=== PATIENT | female | born 1950 | race Caucasian/White ===

== ENCOUNTER → 2016-06-17 | Outpatient (CLI) | payer MEDICARE, BC ==
--- NOTE | 2016-06-18 14:19 | RADONC ---
RADIATION ONCOLOGY CONSULTATION NOTE DATE: 06/17/2016 CHART NUMBER: [id number]. DIAGNOSIS: Right breast cancer. STAGE: IA, [id number]. ECOG PERFORMANCE STATUS: 0 CONSULTATION NOTE: Ms. 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 HISTORY OF PRESENT ILLNESS The patient was in the usual state of health until routine mammogram was done on 02/13/2016 which revealed a small mass in the 11 o'clock position of the right breast. On 04/04/2016 the patient underwent needle biopsy and pathology revealed a well-differentiated infiltrating ductal carcinoma. On 05/06/2016 the patient underwent lumpectomy and sentinel lymph node biopsy. Pathology revealed a 1 cm x 1 cm x 0.9 cm well-differentiated invasive ductal carcinoma of the right breast. All margins of resection were negative. The tumor was estrogen receptor and progesterone receptor positive and HER2 negative. Two sentinel lymph nodes were sampled and were negative for malignancy. The patient underwent Oncotype testing, the results of which I do not have at this time, but it was determined that she would not benefit from systemic chemotherapy. She is now presenting for consideration of postoperative radiation therapy for conservative breast management. PAST MEDICAL HISTORY: The patient's past medical history is positive for hypertension and cataracts. She has had cataract surgery. ALLERGIES: The patient has no known drug allergies. SOCIAL HISTORY: The patient has smoked one pack of cigarettes per day for 50 years. She does not abuse alcohol. FAMILY HISTORY: The patient's family history is positive for a mother with some type of cancer. REVIEW OF SYSTEMS: The patient's review of systems is noncontributory. She denies nausea, vomiting, fevers, chills, night sweats, diplopia, headaches, anxiety or depression, anorexia, weight loss, visual disturbances, chest pain, urinary or bowel difficulties, bone pain, or neurological problems. PHYSICAL EXAMINATION: The patient is a well-developed, well-nourished white female in no acute distress. HEENT exam is normocephalic, atraumatic. Extraocular movements are intact. There is no palpable cervical, supraclavicular, infraclavicular, axillary, or inguinal lymphadenopathy present. Lungs are clear to auscultation and percussion. Heart has a regular rate and rhythm. Abdomen is benign with no hepatosplenomegaly, masses, or tenderness. Breast examination reveals no masses or discharge bilaterally. Skeletal examination reveals no tenderness to pressure or percussion of the bony skeleton. Extremities reveal no clubbing, cyanosis, or edema. Neurologic exam is grossly intact, as is the remainder of the physical examination. ASSESSMENT: Clearly the patient is a candidate for external beam radiation therapy and I have so informed her. I have discussed with the patient in detail the potential benefits as well as possible acute and chronic sequelae of external beam radiation therapy. We have discussed logistics of treatment planning, simulation and subsequent fractionated daily radiation treatments. I have scheduled the patient for the next available simulation slot and radiation treatments will begin subsequently. Thank you for allowing us to participate in the care of this very pleasant woman. If I could be of any further assistance or provide you with any information, please feel free to contact me at any time. cc: *Ezequiel Joe MD *Zen Pinto MD *Eleonora Nur MD
== END ==
LOC: M ONCR 13:09
PROVIDERS: ATTEND Radiology Radiation Oncology
DX: C50.119 Malignant neoplasm of central portion of unspecified female breast (principal)

== ENCOUNTER 2016-06-24 09:44 | Outpatient (RCR) | payer MEDICARE, BC | END 2016-07-11 | LOC: M ONCR 09:44 | PROVIDERS: ATTEND Radiology Radiation Oncology | DX: C50.411 Malignant neoplasm of upper-outer quadrant of right female breast (principal) ==

== ENCOUNTER → 2016-06-24 | Outpatient (CLI) | payer MEDICARE, BC ==
[2016-06-24 09:55] LABS: MEAN CORPUSCULAR HEMOGLOBIN 33.3 pg (27.0-33.0); MEAN CORPUSCULAR HGB CONC 35.1 g/dl (32.0-36.5); MEAN CORPUSCULAR VOLUME 94.8 fl (80.0-96.0); RED CELL DISTRIBUTION WIDTH 11.5 % (11.5-14.5); WHITE BLOOD COUNT 5.7 K/mm3 (4.0-10.0)
== END ==
LOC: M RAD 08:36
PROVIDERS: ATTEND Radiology Radiation Oncology
DX: C50.919 Malignant neoplasm of unspecified site of unspecified female breast (principal)

== ENCOUNTER 2016-07-14 08:01 | Outpatient (RCR) | payer MEDICARE, BC ==
--- NOTE | 2016-07-15 07:26 | RADONC ---
RADIATION ONCOLOGY PROGRESS NOTE: DATE OF SERVICE: 07/14/2016 CHART NO: [id number] Ms. Young is presently at a dose of 1064 cGy to her right breast and is tolerating treatments quite well at this point with no complaints related to her radiation therapy. She has no breast or bone pain. REVIEW OF SYSTEMS: The patient's review of systems is noncontributory. Denies nausea, vomiting, fevers, chills, night sweats, diplopia, headaches, anxiety or depression, anorexia, weight loss, visual disturbances, chest pain, urinary or bowel difficulties, bone pain, or neurological problems. PHYSICAL EXAMINATION: The patient's skin is in good condition with no evidence of radiation change present. There is no moist or dry desquamation. The remainder of her physical exam remains unchanged. Ms. Young is tolerating treatments quite well and radiation will continue as scheduled.
--- NOTE | 2016-07-22 06:48 | RADONC ---
RADIATION ONCOLOGY PROGRESS NOTE DATE: 07/21/2016 CHART NUMBER: [id number]. Ms. Young is presently at a dose of 2394 cGy to her right breast and is tolerating treatments quite well with no complaints related to her radiation therapy. She is having no breast or bone pain. REVIEW OF SYSTEMS: The patient's review of systems is noncontributory. She denies nausea, vomiting, fevers, chills, night sweats, diplopia, headaches, anxiety or depression, anorexia, weight loss, visual disturbances, chest pain, urinary or bowel difficulties, bone pain, or neurological problems. PHYSICAL EXAMINATION: The patient's skin is in good condition with no evidence of moist or dry desquamation. The remainder of her physical exam remains unchanged. Ms. Young is tolerating treatments quite well and radiation will continue as scheduled.
--- NOTE | 2016-07-28 11:13 | RADONC ---
RADIATION ONCOLOGY PROGRESS NOTE DATE: 07/28/2016 CHART NUMBER: [id number] Ms. Young is presently at a dose of 3638 cGy to her right breast and is tolerating treatments quite well at this point with no complaints related to her radiation therapy. She has no breast or bone pain. The patient's review of systems is noncontributory. She denies nausea, vomiting, fevers, chills, night sweats, diplopia, headaches, anxiety or depression, anorexia, weight loss, visual disturbances, chest pain, urinary or bowel difficulties, bone pain, or neurological problems. PHYSICAL EXAMINATION: The patient's skin is in good condition with no evidence of moist or dry desquamation. There is just some erythema present. The remainder of her physical exam remains unchanged. Ms. Young is tolerating treatments quite well and radiation will continue as scheduled.
--- NOTE | 2016-07-31 08:54 | RADONC ---
RADIATION ONCOLOGY TREATMENT SUMMARY DATE: 07/30/2016 CHART NUMBER: [id number]. DIAGNOSIS: Right breast cancer. STAGE: IA, [id number]. ECOG PERFORMANCE STATUS: Zero TREATMENT SUMMARY: Ms. Young is a very pleasant, 65-year-old white female with the diagnosis of a stage IA, [id number] well-differentiated invasive ductal carcinoma of the right breast who presented to us status post lumpectomy and sentinel lymph node biopsy for consideration of postoperative radiation therapy for conservative breast management. We treated the patient to the right breast for a total dose of 4250 cGy delivered in 16 fractions of 265.6 cGy over 21 elapsed days from 07/09/2016 through 07/30/2016. The patient's right breast was treated on a linear accelerator utilizing 3-D conformal therapy via medial and lateral tangential friedman and a combination of 18X and 6X photons. Ms. Young tolerated her treatments quite well and was able complete therapy as prescribed without interruption. I have scheduled the patient to see me again in 1 month for further followup. She will also continue to be followed by her other physicians as well. cc: *Ezequiel Joe MD *Zen Pinto MD *Eleonora Nur MD
== END 2016-08-10 ==
LOC: M ONCR 08:01
PROVIDERS: ATTEND Radiology Radiation Oncology
DX: C50.411 Malignant neoplasm of upper-outer quadrant of right female breast (principal)

== ENCOUNTER → 2016-08-27 | Outpatient (CLI) | payer MEDICARE, BC ==
--- NOTE | 2016-08-27 10:16 | RADONC ---
RADIATION ONCOLOGY FOLLOWUP NOTE DATE: 08/27/2016 CHART NUMBER: [id number] DIAGNOSIS: Right breast cancer. STAGE: IA, [id number]. ECOG PERFORMANCE STATUS: 0. FOLLOWUP NOTE: Ms. Young is a very pleasant 65-year-old white female with the diagnosis of a stage IA, [id number], well-differentiated invasive ductal carcinoma of the right breast who is presenting to us today for routine followup visit 1 month post completion of external beam radiation therapy. The patient presents today reporting that she is doing quite well with no complaints at this time related to her radiation therapy or disease. She had no breast or bone pain. The patient's review of systems noncontributory. She denies nausea, vomiting, fevers, chills, night sweats, diplopia, headaches, anxiety or depression, anorexia, weight loss, visual disturbances, chest pain, urinary or bowel difficulties, bone pain, or neurological problems. PHYSICAL EXAMINATION: The patient is a well-developed, well-nourished, female in no acute distress. HEENT exam is normocephalic, atraumatic. Extraocular movements are intact. There is no palpable cervical, supraclavicular, infraclavicular, axillary, or inguinal lymphadenopathy present. Lungs are clear to auscultation and percussion. Heart has a regular rate and rhythm. Abdomen is benign with no hepatosplenomegaly, masses, or tenderness. Breast examination reveals no masses or discharge bilaterally. Skeletal examination reveals no tenderness to pressure or percussion of the bony skeleton. Extremities reveal no clubbing, cyanosis, or edema. Neurologic exam is grossly intact, as is the remainder of the physical examination. ASSESSMENT: The patient is clinically doing quite well at this point and will be seen by us again in 6 months for further followup. She will also continue to be followed by her other physicians as well. cc: *Ezequiel Joe MD *Zen Pinto MD *Eleonora Nur MD *Azar Negron MD
== END ==
LOC: M ONCR 09:34
PROVIDERS: ATTEND Radiology Radiation Oncology
DX: C50.411 Malignant neoplasm of upper-outer quadrant of right female breast (principal)

== ENCOUNTER → 2017-02-25 | Outpatient (CLI) | payer MEDICARE, BC ==
--- NOTE | 2017-02-25 11:06 | RADONC ---
RADIATION ONCOLOGY FOLLOWUP NOTE DATE: 02/25/2017 CHART NUMBER: [id number]. DIAGNOSIS: Right breast cancer. STAGE: IA, [id number]. ECOG PERFORMANCE STATUS: Zero. FOLLOWUP NOTE: Ms. Young is a very pleasant, 66-year-old white female with the diagnosis of a stage IA, [id number], well-differentiated invasive ductal carcinoma of the right breast who is presenting to us today for routine followup visit 7 months post completion of external beam radiation therapy. The patient presents today reporting that she is doing quite well with no complaints at this time related to her radiation therapy or disease other than some right breast tenderness. REVIEW OF SYSTEMS: The patient's review of systems is positive for right breast tenderness, but is otherwise noncontributory. Denies nausea, vomiting, fevers, chills, night sweats, diplopia, headaches, anxiety or depression, anorexia, weight loss, visual disturbances, chest pain, urinary or bowel difficulties, bone pain, or neurological problems. PHYSICAL EXAMINATION: The patient is a well-developed, well-nourished, 66-year-old white female in no acute distress. HEENT exam is normocephalic, atraumatic. Extraocular movements are intact. There is no palpable cervical, supraclavicular, infraclavicular, axillary, or inguinal lymphadenopathy present. Lungs are clear to auscultation and percussion. Heart has a regular rate and rhythm. Abdomen is benign with no hepatosplenomegaly, masses, or tenderness. Breast examination reveals no masses or discharge bilaterally. Skeletal examination reveals no tenderness to pressure or percussion of the bony skeleton. Extremities reveal no clubbing, cyanosis, or edema. Neurologic exam is grossly intact, as is the remainder of the physical examination. ASSESSMENT: The patient is clinically KHANH at this time and will be seen by us again in 6 months for further followup. She will also continue to be followed by her other physicians as well. cc: Ezequiel Joe MD, FRCPC MD Eleonora Carrington MD Howard Meny, MD
== END ==
LOC: M ONCR 09:28
PROVIDERS: ATTEND Radiology Radiation Oncology
DX: Z08 Encounter for follow-up examination after completed treatment for malignant neoplasm (principal); Z85.3 Personal history of malignant neoplasm of breast; Z92.3 Personal history of irradiation

== ENCOUNTER → 2017-08-12 | Outpatient (CLI) | payer MEDICARE, BC | LOC: M ONCR 09:13 | DX: Z08 Encounter for follow-up examination after completed treatment for malignant neoplasm (principal); Z85.3 Personal history of malignant neoplasm of breast | CPT/HCPCS: G0463 ==

== ENCOUNTER → 2018-02-10 | Outpatient (CLI) | payer MEDICARE, BC | LOC: M ONCR 09:38 | DX: C50.919 Malignant neoplasm of unspecified site of unspecified female breast (principal) | CPT/HCPCS: G0463 ==

== ENCOUNTER → 2018-08-17 | Outpatient (CLI) | payer MEDICARE, BC ==
--- NOTE | 2018-08-20 09:48 | DEXA ---
AP SPINE L1 - L4 1.023 -1.4 0.2 LT FEMUR TOTAL 0.784 -1.8 -0.4 LT NECK 0.774 -1.9 -0.3 RT FEMUR TOTAL 0.811 -1.6 -0.2 RT NECK 0.794 -1.8 -0.2 TOTAL BODY TOTAL OTHER COMMENTS: There is low bone density of the spine and hips. The density of the spine has decreased 6.4% since 08/13/2016. The density neck of the left hip has decreased 3.0% since 08/13/2016. The density neck of the right hip has increased 1.5% since 08/13/2016. The decreased density of the spine does represent a significant change. The decreased density of the left hip does represent significant change. The increased density of the right hip does not represent significant change. FOLLOW-UP: Recommendation for the next bone density exam: 2 years. ELAINE
== END ==
LOC: M WHC 10:20
PROVIDERS: ATTEND Internal Medicine Medical Oncology
DX: Z17.0 Estrogen receptor positive status [ER+] (principal); M85.89 Other specified disorders of bone density and structure, multiple sites; C50.111 Malignant neoplasm of central portion of right female breast

== ENCOUNTER → 2019-02-16 | Outpatient (CLI) | payer MEDICARE, BC ==
--- NOTE | 2019-02-16 10:35 | RADONC ---
RADIATION ONCOLOGY FOLLOWUP NOTE DATE: 02/16/2019 CHART NUMBER: [id number] DIAGNOSIS: Right breast cancer. STAGE: I A, [id number]. ECOG PERFORMANCE STATUS: 0 FOLLOWUP NOTE: Mrs. Young is a very pleasant, 67-year-old female with a diagnosis of a stage I A, [id number], well differentiated invasive ductal carcinoma involving the right breast. She presents today for a followup visit after having completed a course of adjuvant radiotherapy on 07/30/2016. Since this time she has been doing relatively well, however an abnormality was noted on the left breast (contralateral breast). This area of question was biopsied and shown to represent only fibrocystic changes with adenosis and intraductal papilloma. She is continuing to be followed up very carefully by her referring physicians including Dr. Ezequiel Joe, Dr. Azar Negron, Dr. Eleonora Nur, and Dr. Zen Pinto. REVIEW OF SYSTEMS: She denies any nausea, vomiting, coughing, sputum production or hemoptysis. Her energy level is such that she is able to maintain most of her day-to-day activities without any alteration of her lifestyle. She also denies anorexia, weight loss, visual disturbances, chest pain, urinary or bowel problems, bone pain, or neurologic deficits. PHYSICAL EXAMINATION: She is a well-nourished, well-developed, 68-year-old female, in no acute distress. HEENT: Normocephalic. EOMs intact. PERRLA. Fundi benign. No palpable peripheral lymphadenopathy is appreciated. Lungs are clear to auscultation and percussion. Heart: Regular without murmurs. Abdomen: Without evidence of hepatomegaly, masses, deep abdominal tenderness. Extremities: Without cyanosis, clubbing or edema. Neurologic: Examination grossly physiologic. IMPRESSION: Clinically KHANH. PLAN: We would like to see the patient on a p.r.n. basis and she was encouraged to return to her referring physicians as per their directions and instructions. cc: Ezequiel Joe MD, FRCPC MD Eleonora Carrington MD Howard Meny, MD
== END ==
LOC: M ONCR 09:44
PROVIDERS: ATTEND Radiology Radiation Oncology
DX: C50.411 Malignant neoplasm of upper-outer quadrant of right female breast (principal)